=== PATIENT | male | born 1945 ===

== ENCOUNTER 2021-04-11 13:15 | Inpatient (IN) | payer BC ==
[~2021-04-11] VITALS: Ht 177.8 cm; Wt 57.0 kg
[2021-04-11] MEDS ORDERED: methylPREDNISolone SOD SUCC 125 MG/2 ML VL IV ONE (13:30)
[2021-04-11] MEDS ORDERED: ALBUTEROL SULF 2.5 MG/0.5ML(0.5%) NEB SOLN NEB ONE (13:30)
[2021-04-11] MEDS ORDERED: IPRATROPIUM BROM 0.5 MG/2.5ML INH SOL NEB ONE (13:30)
[2021-04-11 15:57] LABS: Basophils # (auto) 0.1 10 ^3/uL (0-0.2); Eosinophils # (auto) 0.6 10 ^3/uL (0-0.8); Hemoglobin 17.8 g/dL (13.5-17.5); Lymphocytes % (auto) 15.8 % (10.0-50.0); Monocytes # (auto) 0.4 10 ^3/uL (0-1.3); Nucleated Red Blood Cells % 0.1 %
[2021-04-11 15:59] LABS: Basophils % (auto) 1.1 % (0.0-2.0); Hematocrit 52.8 % (41.0-53.0); Lymphocytes # (auto) 1.2 10 ^3/uL (0.4-5.4); Mean Corpuscular Hemoglobin 32.1 pg (28.0-32.0); Mean Corpuscular Hgb Conc. 33.8 g/dL (32.0-36.0); Mean Corpuscular Volume 95.1 fL (80.0-100.0); Monocytes % (auto) 5.8 % (0.0-12.0); Neutrophils # (auto) 5.1 10 ^3/uL (1.6-8.6); Neutrophils % (auto) 69.3 % (37.0-80.0); Red Blood Cells 5.55 10^6/uL (4.5-5.90); Red Cell Distribution Width 14.3 % (11.8-14.3); White Blood Cell 7.3 10^3/uL (4.4-10.8)
[2021-04-11 16:29] LABS: Albumin 3.3 g/dL (3.4-5.0); Anion Gap 5 (5-15); Blood Urea Nitrogen 18 mg/dL (7-18); Calcium 8.6 mg/dL (8.5-10.1); Carbon Dioxide 30 mmol/L (21-32); Chloride 107 mmol/L (98-107); Glucose 92 mg/dL (74-106); Potassium 4.4 mmol/L (3.5-5.1); Sodium 142 mmol/L (136-145)
[2021-04-11 16:32] LABS: Alanine Aminotransferase 18 U/L (16-61); Aspartate Aminotransferase 13 U/L (15-37); BUN/Creatinine Ratio 21.4; GFR African American 114 mL/min; GFR Non-African American 94 mL/min
[2021-04-11 16:37] LABS: Alkaline Phosphatase 65 U/L (45-117); Bilirubin, Total 1.4 mg/dL (0.2-1.0); Total Protein 6.4 g/dL (6.4-8.2)
[2021-04-11] MEDS ORDERED: MORPHINE SULFATE 4 MG/ML SYR/VIAL IV PRN (17:45)
[2021-04-11] MEDS ORDERED: MORPHINE SULFATE INJECTION 2 MG/ML SYRG IV PRN ×2 (17:45)
[2021-04-11] MEDS ORDERED: ONDANSETRON HCL 4 MG/2 ML VIAL IV PRN (17:45)
[2021-04-11] MEDS ORDERED: NITROGLYCERIN 0.4 MG SL TAB SL PRN (17:45)
[2021-04-11] MEDS: DOXYCYCLINE 100MG/250ML 250 ML IV SCH (18:20)
[2021-04-11] MEDS: methylPREDNISolone SOD SUCC 40 MG/ML VL IV SCH (18:20)
[2021-04-11] MEDS: IPRATROPIUM BROM 0.5 MG/2.5ML INH SOL NEB SCH (19:01)
[2021-04-11] MEDS: ALBUTEROL SULF 2.5 MG/0.5ML(0.5%) NEB SOLN NEB SCH (19:01)
[2021-04-11] MEDS: BUDESONIDE (INHALATION) 0.5 MG/2 ML NEB NEB SCH (19:01)
[2021-04-11] MEDS ORDERED: IOHEXOL 350 MG/ML 100ML IJ ONE (19:08)
[2021-04-11 19:55] LABS: Urine Bacteria NONE SEEN /hpf (None Seen); Urine Blood Negative /uL (Negative); Urine Hyaline Cast FEW /lpf (0 - 2); Urine Mucus FEW (None Seen); Urine Specific Gravity 1.019 (1.001-1.035); Urine WBC <1 /hpf (0 - 3)
[2021-04-11 23:42] VITALS: BP 125/71
[2021-04-12] MEDS: methylPREDNISolone SOD SUCC 40 MG/ML VL IV SCH ×5 (06:00→23:45)
[2021-04-12] MEDS: ALBUTEROL SULF 2.5 MG/0.5ML(0.5%) NEB SOLN NEB SCH ×3 (06:15→19:08)
[2021-04-12] MEDS: BUDESONIDE (INHALATION) 0.5 MG/2 ML NEB NEB SCH ×2 (06:15→19:09)
[2021-04-12] MEDS: IPRATROPIUM BROM 0.5 MG/2.5ML INH SOL NEB SCH ×3 (06:16→19:08)
[2021-04-12] MEDS: FAMOTIDINE 20 MG TAB PO SCH ×3 (06:21→21:24)
[2021-04-12] MEDS: DOXYCYCLINE 100MG/250ML 250 ML IV SCH ×2 (06:58→18:37)
[2021-04-12] MEDS: ENOXAPARIN SOD 40 MG/0.4 ML SYRINGE SC SCH (10:18)
[2021-04-12 16:39] VITALS: BP 114/59
[2021-04-12] MEDS ORDERED: ACETAMINOPHEN 325 MG TAB PO PRN (19:45)
[2021-04-12 22:00] VITALS: BP 110/78
[2021-04-13 05:00] VITALS: BP 112/67
[2021-04-13] MEDS: methylPREDNISolone SOD SUCC 40 MG/ML VL IV SCH ×3 (06:02→17:56)
[2021-04-13] MEDS: DOXYCYCLINE 100MG/250ML 250 ML IV SCH ×2 (06:02→17:57)
[2021-04-13] MEDS: BUDESONIDE (INHALATION) 0.5 MG/2 ML NEB NEB SCH (06:20)
[2021-04-13] MEDS: ALBUTEROL SULF 2.5 MG/0.5ML(0.5%) NEB SOLN NEB SCH ×3 (06:20→18:35)
[2021-04-13] MEDS: IPRATROPIUM BROM 0.5 MG/2.5ML INH SOL NEB SCH ×3 (06:20→18:35)
[2021-04-13 09:00] VITALS: BP 121/64
[2021-04-13] MEDS: ENOXAPARIN SOD 40 MG/0.4 ML SYRINGE SC SCH (11:30)
[2021-04-13] MEDS: FAMOTIDINE 20 MG TAB PO SCH (11:30)
[2021-04-13 12:58] VITALS: BP 110/56
[2021-04-13] MEDS ORDERED: AMOX500T86 PO (16:03)
[2021-04-13] MEDS ORDERED: BUDE0.253 IN (16:03)
[2021-04-13] MEDS ORDERED: IPRA0.00 IN (16:03)
[2021-04-13] MEDS ORDERED: PANT40T PO (16:03)
[2021-04-13] MEDS ORDERED: PRED20TA2 PO (16:03)
[2021-04-13] MEDS ORDERED: AZIT500T66 PO (16:05)
[2021-04-13 17:00] VITALS: BP 110/67
== END 2021-04-13 19:20 | disposition home or self-care (01) | DRG 189 ==
LOC: ER 13:15 → EDBD 13:15 → TELE 17:42 → TELE-CENTR 04-12 12:41
PROVIDERS: ADMIT Hospitalist; ATTEND Hospitalist
DX: J96.21 Acute and chronic respiratory failure with hypoxia (principal); J44.1 Chronic obstructive pulmonary disease with (acute) exacerbation; Z20.822 Contact with and (suspected) exposure to COVID-19; Z82.49 Family history of ischemic heart disease and other diseases of the circulatory system; Z99.81 Dependence on supplemental oxygen; Z82.5 Family history of asthma and other chronic lower respiratory diseases; Z87.891 Personal history of nicotine dependence
CPT/HCPCS: 36415; 71045; 71275; 80053; 81001; 83880; 84484; 85025; 87426; 93005; 94640; 96372; 96374; 97163; G0378; J3490